=== PATIENT | female | born 1990 | race African-American/Black ===

== ENCOUNTER 2018-06-05 10:02 | Inpatient (IN) | payer OTHER ==
[~2018-06-05 10:02] MED LIST: Bicitra 30 ML UDCUP PO SCH; CEFAZOLIN/Water 2 GM/20 ML SYRINGE SLOW IVP SCH; Ondansetron PF 4 MG/2 ML Vial IVP PRN; Promethazine HCl 25 MG/ML VIAL IM PRN
[2018-06-05] MEDS: Lactated Ringer's 1,000 ML IV SCH ×3 (10:48→21:07)
[2018-06-05 11:01] LABS: Hemoglobin 11.6 g/dL (12.0-16.0); Mean Corpuscular HGB CONC 32.5 g/dL (32.0-36.0); Mean Corpuscular Hemoglobin 29.4 pg (27.0-31.0); Mean Corpuscular Volume 90.6 fL (78.0-98.0); Mean Platelet Volume 8.1 fL (7.4-10.4); Platelet Count 243 thou/uL (130-400); RBC Distribution Width 14.1 % (11.5-14.5); Red Blood Cell (RBC) Count 3.95 mill/uL (4.20-5.40); White Blood Cell (WBC) Count 5.7 thou/uL (4.8-10.8)
[2018-06-05 11:14] VITALS: BMI 28.6
[2018-06-05 11:48] LABS: Hep B Surf Ag Non-Reactive S/CO (NonReactive); Syphilis Antibody Nonreactive (Nonreactive); Syphilis Antibody Index 0.04 S/CO (<1.00 Non-Reactive)
[2018-06-05] MEDS ORDERED: CEFAZOLIN 2 GM/50 ML-DEXTROSE 2 GM in Premix Bag 1 BAG IVPB SCH (12:00)
[2018-06-05] MEDS ORDERED: Morphine PF 1 MG/ML SYR ONE (12:10)
[2018-06-05] MEDS ORDERED: Bupivacaine 0.75% W/DEXTROSE 8.25% 2 ML AMP ONE (12:11)
[2018-06-05] MEDS ORDERED: Ondansetron PF 4 MG/2 ML Vial ONE (12:11)
[2018-06-05] MEDS ORDERED: Oxytocin 10 UNITS/ML VIAL ONE (12:11)
[2018-06-05] MEDS ORDERED: Lidocaine 2% PF Inj 2 ML VIAL ONE (12:12)
[2018-06-05] MEDS ORDERED: ePHEDrine/0.9% NaCl/PF SYRINGE 50 mg/10 ml ONE (12:33)
[2018-06-05] MEDS ORDERED: Ketorolac Tromethamine 30 MG/ML VIAL ONE (12:53)
[2018-06-05] MEDS ORDERED: Fentanyl 100 MCG/2 ML VIAL ONE (12:56)
[2018-06-05] MEDS ORDERED: diphenhydrAMINE 50 MG/ML VIAL IVP PRN (13:16)
[2018-06-05] MEDS ORDERED: Ondansetron PF 4 MG/2 ML Vial IVP PRN (13:16)
[2018-06-05] MEDS ORDERED: Promethazine HCl 25 MG/ML VIAL IM PRN (13:16)
[2018-06-05] MEDS ORDERED: Naloxone HCl 0.4 mg/ml Vial IVP PRN ×2 (13:16)
[2018-06-05] MEDS ORDERED: Eucerin (Mineral Oil/Petrolatum,White) 30 gm Jar TOP PRN (13:16)
[2018-06-05] MEDS ORDERED: Naloxone HCl 0.4 mg/ml Vial IV PRN (13:16)
[2018-06-05] MEDS ORDERED: Promethazine HCl 25 MG SUPP PR PRN (13:16)
[2018-06-05] MEDS ORDERED: diphenhydrAMINE 25 MG CAP PO PRN (13:25)
[2018-06-05] MEDS ORDERED: Bisacodyl 10 MG SUPP PR PRN (13:25)
[2018-06-05] MEDS ORDERED: Adacel (T-DAP) 0.5 ML VIAL IM ONE (13:25)
[2018-06-05] MEDS ORDERED: Zolpidem Tartrate 5 MG TAB PO PRN (13:25)
[2018-06-05] MEDS ORDERED: Simethicone Chewable 80 MG TAB PO PRN (13:25)
[2018-06-05] MEDS ORDERED: Misoprostol 200 MCG TAB PR PRN (13:25)
[2018-06-05] MEDS ORDERED: Lanolin Ointment 7 GM TUBE TOP PRN (13:25)
--- NOTE | 2018-06-05 13:28 | PDOC.OPDEL ---
OB Operative/Delivery Note Delivery Dr/Surgeon: Tony Pre-Delivery Diagnosis: scheduled section Procedure/Post Delivery Dx: repeat low transverse CS Weeks gestation: 39 Anesthesia: spinal - Findings A Sex: male Weight: 7 lb 3 oz - 1 min: 8 - 5 min: 9 - Additional Findings/Plan Placenta delivered: manual removal findings: low transverse hysterotomy without extension (lower uterine segment scarring/omental adhesions. S/p lysis of adhesions.) Post delivery plan: routine recovery
[2018-06-05] MEDS ORDERED: NS / Oxytocin 40 units/1000ml 1,000 ML IV SCH (13:30)
[2018-06-05] MEDS ORDERED: Communication Order-Pharmacy FS SCH (13:30)
[2018-06-05] MEDS ORDERED: HYDROmorphone 2 MG/ML VIAL SLOW IVP PRN (14:57)
[2018-06-05] MEDS ORDERED: Ondansetron HCl/PF 4 MG/2 ML Vial IVP PRN (14:57)
[2018-06-05] MEDS ORDERED: HYDROmorphone 2 MG/ML VIAL SLOW IVP SCH (15:30)
--- NOTE | 2018-06-05 15:30 | OP ---
DATE OF PROCEDURE: 06/05/2018 PREOPERATIVE DIAGNOSES: 1. A 28-year-old -[place] female G2, P1 at 39 weeks gestation, prior section. 2. Desires repeat. POSTOPERATIVE DIAGNOSES: 1. A 28-year-old -[place] female G2, P1 at 39 weeks gestation, prior section. 2. Desires repeat. PROCEDURE PERFORMED: 1. Repeat low transverse section without extension. 2. Lysis of adhesions. SURGEON: Kelly Jimenez M.D. UTILITY WORKER PRODUCTION: Anna Erickson D.O. ANESTHESIA: Spinal block. FINDINGS: 1. Vigorous male infant, Apgars 8 and 9, weight 7 pounds 3 ounces. Vertex presentation. 2. Clear amniotic fluid noted. 3. Patient with significant lower uterine segment adhesions noted on entry in the abdomen, status po st adhesiolysis. 4. Clear urine present in Flores catheter post procedure. DISPOSITION: To recovery room, stable. DESCRIPTION OF OPERATIVE PROCEDURE: The patient previously received informed consent in regard to deng rgbanner. She is taken back to the operating room where she received a spinal block without complicatio ns. She was then placed in the supine position, prepped and draped in usual sterile fashion. The Fo eunice catheter and SCDs had been placed during the prep process. At this time, a Pfannenstiel incision was made through the previous scar site. This was carried down the fascia. Fascia was nicked in th e midline. Fascial incision was extended bilaterally using curved Dowling scissors. The rectus fascia was then dissected superiorly and inferiorly off the rectus muscle bellies. The rectus muscle bellie s were divided in the midline and a window in the peritoneum was identified and this was incised with Metzenbaum scissors. This was extended sharply. Then layering technique, adhesions were taken down off the lower uterine segment both peritoneal and omental. Once this had been cleared and mobilizat ion of the uterus was possible, an Jarad O retractor was then placed. A 2 cm hysterotomy incision w as then made in the lower uterine segment. This was extended via finger fractionation. The amniotic bag was ruptured and the baby was delivered in the vertex presentation. The mouth and nares of the infant were bulb suctioned on the abdomen. The cord was doubly clamped and cut and the baby was hand ed to pediatric team in attendance. The usual cord blood was obtained and placenta was manually extr acted. The uterus was externalized and the uterus was curetted of any remaining placental fragments with a dry laparotomy sponge. Hysterotomy incision was then closed in two layer closure with #1 [place] cryl in running locking fashion. There continued to be some bleeding in the middle portion of hyste rotomy to site and additional 0-chromic sutures were placed in many locking and in [id number] st itch fashion until adequate hemostasis was assured. The uterus was returned back in the abdomen and the area again was inspected and hemostasis was noted with some continued moderate amount of oozing a nd therefore, FloSeal was placed in the secured hemostasis. Once it had been in place, hemostasis al rossy the hysterotomy incision again was confirmed. The Jarad O retractor was removed. The rectus mu scle bellies were inspected and noted to be hemostatic. The fascia was then closed in running contin uous fashion with 0 PDS suture x2. Subcutaneous tissue was noted to be hemostatic prior to skin appr oximation with arthur. Surgery was terminated and no anesthetic or surgical complications.
[2018-06-05] MEDS: Ferrous Sulfate 325 MG TAB PO SCH (17:36)
[2018-06-05] MEDS: Docusate Calcium (SURFAK) 240 MG CAP PO SCH (21:02)
[2018-06-06] MEDS: Ketorolac Tromethamine 30 MG/ML VIAL IVP PRN ×2 (00:16→07:57)
[2018-06-06] MEDS ORDERED: Meperidine HCl/PF 25 MG/ML VIAL IM PRN (01:30)
[2018-06-06 05:39] LABS: Hemoglobin 7.1 g/dL (12.0-16.0); Mean Corpuscular HGB CONC 32.2 g/dL (32.0-36.0); Mean Corpuscular Hemoglobin 29.7 pg (27.0-31.0); Mean Corpuscular Volume 92.2 fL (78.0-98.0); Platelet Count 178 thou/uL (130-400); RBC Distribution Width 13.9 % (11.5-14.5); Red Blood Cell (RBC) Count 2.39 mill/uL (4.20-5.40); White Blood Cell (WBC) Count 8.3 thou/uL (4.8-10.8)
[2018-06-06] MEDS ORDERED: Sodium Chloride 0.9% 10 ML ONE (07:53)
[2018-06-06] MEDS: Prenatal Vitamin 1 TAB PO SCH (07:59)
[2018-06-06] MEDS: Ferrous Sulfate 325 MG TAB PO SCH ×2 (07:59→17:47)
[2018-06-06] MEDS: Docusate Calcium (SURFAK) 240 MG CAP PO SCH ×2 (07:59→21:26)
--- NOTE | 2018-06-06 08:47 | PDOC.PP ---
Post Progress Note Post Day #: 1 PO intake tolerated: yes Flatus: yes Ambulation: yes Vital Signs (12 hours) Temp Pulse Resp BP 06/06/18 06:28 18 06/06/18 04:00 98.5 F 94 18 94/53 L 06/06/18 00:00 98.7 F 114 H 20 114/59 L 06/05/18 22:00 18 Weight Weight 183 lb - Physical Examination Respiratory: clear to auscultation bilaterally, non-labored breathing Abdominal: + bowel sounds, lochia, no distention, appropriately TTP Extremities: negative homans (B) Result Diagrams: 06/06/18 05:04 Additional Labs: Post Labs Blood Type O POSITIVE 06/05/18 10:48 Hep Bs Antigen Non-Reactive S/CO (NonReactive) 06/05/18 10:48 - Assessment/Plan Post op day 1. Asymptomatic blood loss anemia. No tachycardia. Excellent urine output. advance diet. Iron. Routine care.
[2018-06-06] MEDS: HYDROcodone/Acetaminophen 5/325 mg Tablet PO PRN ×4 (09:25→21:54)
[2018-06-06] MEDS: Lactated Ringer's 1,000 ML IV SCH ×2 (09:28→16:50)
[2018-06-06] MEDS: Ibuprofen 800 MG TAB PO SCH ×2 (13:32→21:26)
--- NOTE | 2018-06-07 00:27 | PDOC.PP ---
Post Progress Note Post Day #: 2 Subjective: Doing well, ambulating well PO intake tolerated: yes Flatus: yes Ambulation: yes Vital Signs (12 hours) Temp Pulse Resp BP Pulse Ox 06/06/18 20:00 97.7 F 97 18 104/54 L 100 06/06/18 17:30 98.5 F 102 H 20 112/63 06/06/18 12:46 98.2 F 102 H 20 107/57 L Weight Weight 183 lb - Physical Examination General: NAD Cardiovascular: no m/r/g Respiratory: clear to auscultation bilaterally Abdominal: + bowel sounds, lochia, no distention, appropriately TTP Extremities: negative homans (B) Skin: CS incision dry & intact ([place] in place (3 steri strips on the incision on maternal right side)) Neurological: no gross focal deficits Psychiatric: A&Ox3, normal affect Result Diagrams: 06/06/18 05:04 Additional Labs: Post Labs Blood Type O POSITIVE 06/05/18 10:48 Hep Bs Antigen Non-Reactive S/CO (NonReactive) 06/05/18 10:48 (1) delivery delivered Code(s): O82 - ENCOUNTER FOR DELIVERY WITHOUT INDICATION Status: Acute - Assessment/Plan POD 2 from scheduled repeat CS. Doing well. Hct was 22 from 35. Would like to be discharged home today if baby able. Plan: 1. We will plan for noon dsch if baby ok for release 2. has staple appointment saturday 3. Asx anemia- Fe supplements given 4. BPs ok, no evidence of ileus
--- NOTE | 2018-06-07 00:30 | PDOC.EVN ---
Event Note - Event Note Event Note: DISCHARGE NOTE: Discharge sheet completed in paper chart: S/P elective repeat CS Routine postop care [place] in place
[2018-06-07] MEDS: Lactated Ringer's 1,000 ML IV SCH ×2 (01:49→09:48)
[2018-06-07] MEDS: Ibuprofen 800 MG TAB PO SCH (05:50)
[2018-06-07] MEDS: HYDROcodone/Acetaminophen 5/325 mg Tablet PO PRN ×2 (05:51→10:35)
[2018-06-07] MEDS: Docusate Calcium (SURFAK) 240 MG CAP PO SCH (10:34)
[2018-06-07] MEDS: Ferrous Sulfate 325 MG TAB PO SCH (10:34)
[2018-06-07] MEDS: Prenatal Vitamin 1 TAB PO SCH (10:34)
[2018-06-07 12:09] VITALS: BP 111/60; TEMP 98.3
== END 2018-06-07 13:45 | disposition home or self-care (01) | DRG 788 ==
LOC: L&D 10:02 → 3SW 16:19
PROVIDERS: ADMIT Obstetrics & Gynecology; ATTEND Obstetrics & Gynecology
PROC: 10D00Z1 Extraction of Products of Conception, Low, Open Approach (ICD-10-PCS; principal; 2018-06-05)
DX: O34.211 Maternal care for low transverse scar from previous cesarean delivery (principal); Z3A.39 39 weeks gestation of pregnancy; Z37.0 Single live birth
CPT/HCPCS: 36415; 51702; 85027; 86780; 86850; 86900; 86901; 87340; J1170; J1885; J2274; J2405; J2590; J3010; J3490

== ENCOUNTER 2020-06-21 12:26 | Day surgery (SDC) | payer OTHER ==
[2020-06-21] MEDS ORDERED: hydrALAZINE 20 MG/ML VIAL SLOW IVP PRN (12:36)
--- NOTE | 2020-06-21 13:21 | PDOC.LDHP ---
Labor and Delivery H&P Chief complaint: other (spotting) HPI: 30 y/o at 31w3d, patient of Dr. Fernandez, presents with spotting today. She reports having a low lying placenta and wanted to make sure everything was ok. Last intercourse 2 days ago. Denies heavy VB, LOF, ctx, or other concerns. +FM ROS neg for HEENT, cv, pulm, gi, gu, neuro, psych, skin, musculoskeletal or constitutional symptoms other than mentioned above. OB History Details: 2 prior term LTCS. First for distress, second elective repeat. Current complications: other (low lying palcenta) Past Medical History: None Current medications: pre- vitamins Previous surgical history: low tranverse CS (x2) Allergies/Adverse Reactions: Allergies Allergy/AdvReac Type Severity Reaction Status Date / Time No Known Allergies Allergy Verified 06/21/20 13:01 Social history: none - Physical Exam Vital signs reviewed and normal: yes General: NAD, resting Lungs: nonlabored breathing Abdomen: gravid Extremeties: no edema FHT: category 1 (135, mod variability, + accels, no decels) Belva contractions every: None - Vaginal Exam cm dilated: 0 (no blood on spec exam) - OB Labs Blood type: O RH: positive - Assessment 30 y/o at 31w3d with no e/o active bleeding. status reassuring with AGA reactive NST. - Plan -: D/c home with precautions. Advised to keep all appointments.
[2020-06-22] MEDS ORDERED: FLU VACC QS2020-21(6MOS UP)/PF 60 MCG/0.5 ML SYRINGE IM ONE (09:00)
== END 2020-06-21 13:50 | disposition home or self-care (01) ==
LOC: L&D/OP 12:26
PROVIDERS: ATTEND Family Medicine
DX: O26.853 Spotting complicating pregnancy, third trimester (principal); O44.43 Low lying placenta NOS or without hemorrhage, third trimester; O34.211 Maternal care for low transverse scar from previous cesarean delivery; Z3A.31 31 weeks gestation of pregnancy
CPT/HCPCS: 99282

== ENCOUNTER 2020-07-12 08:00 | Outpatient (CLI) | payer OTHER ==
--- NOTE | 2020-07-12 10:25 | ULT ---
Limited Obstetrical ultrasound: 07/12/2020 COMPARISON: None HISTORY: Evaluate location of placenta TECHNIQUE: Multiplanar grayscale sonographic imaging of the gravid uterus obtained. FINDINGS: The uterus contains a single intrauterine gestation demonstrating a heart rate of 143 bpm. The cervical length is estimated at 3.3 cm. The placenta is located anteriorly and demonstrates no evidence for placental previa or placental abruption. The placental tip appears to be 4.8 cm from the internal os. The plywood layup line core layer reports a breech presentation. anatomy and biometry was not assessed on this exam. IMPRESSION: No evidence for placental previa.
== END 2020-07-12 08:01 | disposition home or self-care (01) ==
LOC: BICULT 08:00
PROVIDERS: ATTEND Family Medicine
DX: O09.893 Supervision of other high risk pregnancies, third trimester (principal)
CPT/HCPCS: 76815

== ENCOUNTER 2020-08-12 08:06 | Outpatient (CLI) | payer OTHER ==
[2020-08-12 21:23] LABS: SARS-CoV-2 MS2 Positive; SARS-CoV-2 N Gene Negative; SARS-CoV-2 S Gene Negative; SARS-CoV-2 by NAA Not Detected (NotDetected); SARS-CoV-2 orf1ab Negative
== END 2020-08-12 08:07 | disposition home or self-care (01) ==
LOC: LABBT 08:06
PROVIDERS: ATTEND Family Medicine
DX: Z01.812 Encounter for preprocedural laboratory examination (principal); Z20.822 Contact with and (suspected) exposure to COVID-19
CPT/HCPCS: 87635; U0003

== ENCOUNTER 2020-08-16 14:03 | Inpatient (IN) | payer OTHER ==
[2020-08-16] MEDS ORDERED: Famotidine/PF 20 mg/2ml Vial SLOW IVP PRN (14:37)
[2020-08-16] MEDS ORDERED: Bicitra 30 ML UDCUP PO PRN (14:37)
[2020-08-16] MEDS ORDERED: Promethazine HCl 25 MG/ML VIAL IM PRN ×3 (14:37→23:19)
[2020-08-16] MEDS ORDERED: Ondansetron PF 4 MG/2 ML Vial IVP PRN ×3 (14:37→23:19)
[2020-08-16] MEDS ORDERED: hydrALAZINE 20 MG/ML VIAL SLOW IVP PRN ×2 (14:37→23:19)
[2020-08-16 14:45] VITALS: BMI 35.0
[2020-08-16] MEDS ORDERED: CEFAZOLIN 2 GM in Premix Bag 1 BAG IVPB SCH (14:45)
[2020-08-16] MEDS: Lactated Ringer's 1,000 ML IV SCH (14:54)
[2020-08-16 14:59] LABS: Hemoglobin 9.8 g/dL (12.0-16.0); Mean Corpuscular HGB CONC 32.5 g/dL (32.0-36.0); Mean Corpuscular Hemoglobin 28.2 pg (27.0-31.0); Mean Corpuscular Volume 86.6 fL (78.0-98.0); Mean Platelet Volume 8.3 fL (7.4-10.4); Platelet Count 304 thou/uL (130-400); RBC Distribution Width 15.9 % (11.5-14.5); Red Blood Cell (RBC) Count 3.49 mill/uL (4.20-5.40); White Blood Cell (WBC) Count 6.8 thou/uL (4.8-10.8)
[2020-08-16 15:46] LABS: HBSAg Index 0.25 S/CO (0-0.99); Hep B Surf Ag Non-Reactive S/CO (NonReactive); Syphilis Antibody Nonreactive (Nonreactive); Syphilis Antibody Index 0.05 S/CO (<1.00 Non-Reactive)
[2020-08-16] MEDS ORDERED: Ondansetron PF 4 MG/2 ML Vial ONE (16:06)
[2020-08-16] MEDS ORDERED: Oxytocin 10 UNITS/ML VIAL ONE (16:06)
[2020-08-16] MEDS ORDERED: Morphine PF 10 MG/10 ML VIAL ONE (16:06)
[2020-08-16] MEDS ORDERED: ePHEDrine 50 MG/ML VIAL ONE (16:06)
[2020-08-16 16:35] LABS: Amphetamine Not Detected (NotDetected); Barbiturates Screen Not Detected (NotDetected); Benzodiazepine Screen Not Detected (NotDetected); Cocaine Metabolite Screen Not Detected (NotDetected); Medtox Control Line Valid? VALID (VALID); Medtox Reader # READER 1; Methadone Not Detected (NotDetected); Methamphetamine Not Detected (NotDetected); Opiate Screen Not Detected (NotDetected); Oxycodone Screen Not Detected (NotDetected); Phencyclidine (PCP) Not Detected (NotDetected); THC/Cannabinoid Screen Not Detected (NotDetected); Tricyclic Screen Not Detected (NotDetected)
[2020-08-16] MEDS ORDERED: Dexamethasone 4 mg/ml Vial ONE (16:51)
[2020-08-16] MEDS ORDERED: Ketorolac Tromethamine 30 MG/ML VIAL ONE (16:51)
[2020-08-16] MEDS ORDERED: Promethazine HCl 25 MG/ML VIAL ONE (16:54)
[2020-08-16] MEDS ORDERED: PHENYLEPHRINE-NS 100 MCG/ML 10 ML SYRINGE ONE (16:55)
[2020-08-16] MEDS ORDERED: Ketamine 50 MG/ML (10ML VIAL) ONE (17:09)
[2020-08-16] MEDS ORDERED: Midazolam HCl 2 mg/2 ml Vial ONE (17:09)
[2020-08-16] MEDS ORDERED: Promethazine HCl 25 MG SUPP PR PRN (17:35)
[2020-08-16] MEDS ORDERED: Meperidine HCl/PF 25 MG/ML VIAL SLOW IVP PRN (17:35)
[2020-08-16] MEDS ORDERED: Naloxone HCl 0.4 mg/ml Vial IV PRN (17:35)
[2020-08-16] MEDS ORDERED: diphenhydrAMINE 50 MG/ML VIAL IVP PRN (17:35)
[2020-08-16] MEDS ORDERED: Naloxone HCl 0.4 mg/ml Vial IVP PRN ×2 (17:35)
[2020-08-16] MEDS ORDERED: Ondansetron HCl/PF 4 MG/2 ML Vial IVP PRN (17:35)
[2020-08-16] MEDS ORDERED: L&D-Morphine 4 MG/ML VIAL SLOW IVP PRN (17:35)
[2020-08-16] MEDS ORDERED: HYDROmorphone 2 MG/ML VIAL SLOW IVP PRN (17:35)
[2020-08-16] MEDS ORDERED: Communication Order-Pharmacy FS SCH (17:45)
[2020-08-16] MEDS: metroNIDAZOLE 500 MG in Premix Bag 1 BAG IVPB SCH (19:39)
[2020-08-16] MEDS: CEFAZOLIN 2 GM in Premix Bag 1 BAG IVPB SCH (22:12)
[2020-08-16] MEDS ORDERED: NS / Oxytocin 40 units/1000ml 1,000 ML IV SCH (23:19)
[2020-08-16] MEDS ORDERED: Meperidine HCl/PF 25 MG/ML VIAL IM PRN (23:19)
[2020-08-16] MEDS ORDERED: Simethicone Chewable 80 MG TAB PO PRN (23:19)
[2020-08-16] MEDS ORDERED: HYDROcodone/Acetaminophen 5/325 mg Tablet PO PRN (23:19)
[2020-08-16] MEDS ORDERED: diphenhydrAMINE 25 MG CAP PO PRN (23:19)
[2020-08-16] MEDS ORDERED: Bisacodyl 10 MG SUPP PR PRN (23:19)
[2020-08-16] MEDS ORDERED: Lanolin Ointment 7 GM TUBE TOP PRN (23:19)
[2020-08-16] MEDS ORDERED: Ketorolac Tromethamine 30 MG/ML VIAL IVP SCH (23:59)
[2020-08-17] MEDS: Ketorolac Tromethamine 30 MG/ML VIAL IVP SCH ×4 (00:56→18:02)
[2020-08-17] MEDS: metroNIDAZOLE 500 MG in Premix Bag 1 BAG IVPB SCH ×2 (05:18→15:24)
[2020-08-17] MEDS: CEFAZOLIN 2 GM in Premix Bag 1 BAG IVPB SCH ×3 (05:54→22:20)
[2020-08-17 07:47] LABS: Hemoglobin 8.5 g/dL (12.0-16.0); Mean Corpuscular HGB CONC 32.1 g/dL (32.0-36.0); Mean Corpuscular Hemoglobin 28.3 pg (27.0-31.0); Mean Corpuscular Volume 88.2 fL (78.0-98.0); Mean Platelet Volume 8.4 fL (7.4-10.4); Platelet Count 233 thou/uL (130-400); Red Blood Cell (RBC) Count 2.98 mill/uL (4.20-5.40); White Blood Cell (WBC) Count 17.9 thou/uL (4.8-10.8)
[2020-08-17] MEDS ORDERED: Adacel (T-DAP) 0.5 ML SYRINGE IM ONE (09:00)
[2020-08-17] MEDS: HYDROcodone/Acetaminophen 5/325 mg Tablet PO PRN ×3 (09:02→21:50)
[2020-08-17] MEDS: Ferrous Sulfate 325 MG TAB PO SCH ×2 (09:03→21:50)
[2020-08-17] MEDS: Prenatal Vitamin 1 TAB PO SCH (09:03)
[2020-08-17] MEDS: Docusate Calcium (SURFAK) 240 MG CAP PO SCH ×2 (10:22→21:50)
[2020-08-17] MEDS: Lactated Ringer's 1,000 ML IV SCH (19:47)
[2020-08-17] MEDS ORDERED: Sodium Chloride 0.9% 10 ML ONE (21:40)
[2020-08-17] MEDS: Ibuprofen 800 MG TAB PO SCH (21:50)
[2020-08-18] MEDS: metroNIDAZOLE 500 MG in Premix Bag 1 BAG IVPB SCH ×2 (00:10→09:07)
[2020-08-18] MEDS: HYDROcodone/Acetaminophen 5/325 mg Tablet PO PRN ×2 (01:52→09:14)
[2020-08-18] MEDS: Ibuprofen 800 MG TAB PO SCH (04:58)
[2020-08-18] MEDS: CEFAZOLIN 2 GM in Premix Bag 1 BAG IVPB SCH (04:58)
[2020-08-18 08:21] VITALS: BP 108/58; TEMP 98.5
--- NOTE | 2020-08-18 08:47 | OP ---
DATE OF PROCEDURE: 08/16/2020 PREOPERATIVE DIAGNOSES: 1. A 39-week . 2. Previous x2. POSTOPERATIVE DIAGNOSES: 1. A 39-week . 2. Previous x2. 3. Pelvic adhesive disease. PROCEDURES PERFORMED: 1. Repeat low cervical transverse . 2. Lysis of adhesions. ASSET MANAGEMENT LEAD: Elodia Baltazar MD ANESTHESIA: Spinal. DESCRIPTION OF PROCEDURE: After informed consent was obtained from the patient, she was taken to the OR where spinal anesthesia was administered, Flores and heart tones were performed leftward tilt. She was prepped and draped in the usual sterile fashion. A Pfannenstiel incision was created over her previous incision and carried down to the fascia. The fascia was nicked in the midline and the fascial incision was extended transversely with Dowlign scissors. The superior fascial segment was grasped with Janee's and elevated and the underlying rectus muscles were dissected away with Dowling scissors. This was repeated similarly with the inferior fascial segment. The rectus muscles were divided in the midline sharply. There were significant amount of dense adhesions in the lower uterine segment to the anterior abdominal wall and omental adhesions to the uterine fundus and lateral aspects of the uterus. The omental adhesions were taken down with the Bovie. Hemostasis was ensured with cautery as well. The adhesions between the rectus muscles and the lower uterine segments were taken down carefully with Metzenbaum scissors. These adhesions originated about half of the way up on the uterus and I was able to carefully dissect the adhesions down to about 5 cm from their origination point; however, they became much more dense and adhesed and bleeding from the adhesions became more significant, so decision was made to create a hysterotomy higher in the lower segment than normally. This resulted in encountering the inferior edge of the anterior placenta, which was sharply and bluntly dissected through, the vertex was delivered onto the operative field. The remainder of the delivered atraumatically. The oropharynx and nares were bulb suctioned. The cord was clamped x2 and a vigorous female infant was handed to the staff in attendance. The placenta was manually extracted. Few more adhesions were taken down to mobilize the uterus enough to exteriorize it. The uterus was repaired with a running locking suture of 1 Monocryl in a single full-thickness layer followed by a series of interrupted [id number] sutures along the incision line for hemostasis, which was observed. Bleeding points along the uterus from adhesions were made hemostatic with the Bovie and with interrupted suture ligation. The abdomen was copiously irrigated. At this point in the case, pale yellow urine was noted to be draining into the Flores catheter. The uterus was returned to the abdomen and again inspected for hemostasis, which was observed. Due to blood loss from her pelvic adhesive disease and encountering the placenta and her anemia to start out with, intraoperative transfusion of 2 units of packed red cells was initiated, even though she never became tachycardic or hypotensive. The rectus muscles were inspected and made hemostatic and bleeding points were made hemostatic with the Bovie. The fascia was repaired with a running locking suture of 0 PDS. The skin was reapproximated with arthur. She tolerated the procedure well and suffered no other complications. She was taken to Recovery in stable condition and the infant to Nursery in stable condition. FINDINGS: Viable female infant, Apgars 8 and 9 at one and five minutes respectively. QUANTITATIVE BLOOD LOSS: 1500 secondary to pelvic adhesive disease. COMPLICATIONS: None. Job ID: [id number]
[2020-08-18] MEDS: Ferrous Sulfate 325 MG TAB PO SCH (08:57)
[2020-08-18] MEDS: Docusate Calcium (SURFAK) 240 MG CAP PO SCH (08:57)
[2020-08-18] MEDS: Prenatal Vitamin 1 TAB PO SCH (08:57)
== END 2020-08-18 11:50 | disposition home or self-care (01) | DRG 787 ==
LOC: L&D 14:03 → 3SW 08-17 16:12
PROVIDERS: ADMIT Family Medicine; ATTEND Family Medicine
PROC: 10D00Z1 Extraction of Products of Conception, Low, Open Approach (ICD-10-PCS; principal; 2020-08-16)
PROC: 0DNW0ZZ Release Peritoneum, Open Approach (ICD-10-PCS; 2020-08-16)
PROC: 0W3J0ZZ Control Bleeding in Pelvic Cavity, Open Approach (ICD-10-PCS; 2020-08-16)
PROC: 30233L1 Transfusion of Nonautologous Fresh Plasma into Peripheral Vein, Percutaneous Approach (ICD-10-PCS; 2020-08-16)
PROC: 30233N1 Transfusion of Nonautologous Red Blood Cells into Peripheral Vein, Percutaneous Approach (ICD-10-PCS; 2020-08-16)
PROC: 30233K1 Transfusion of Nonautologous Frozen Plasma into Peripheral Vein, Percutaneous Approach (ICD-10-PCS; 2020-08-16)
DX: O34.211 Maternal care for low transverse scar from previous cesarean delivery (principal); O72.1 Other immediate postpartum hemorrhage; Z3A.39 39 weeks gestation of pregnancy; Z37.0 Single live birth; Z20.822 Contact with and (suspected) exposure to COVID-19; N73.6 Female pelvic peritoneal adhesions (postinfective); O99.892 Other specified diseases and conditions complicating childbirth; O99.02 Anemia complicating childbirth; D50.0 Iron deficiency anemia secondary to blood loss (chronic)
CPT/HCPCS: 36415; 36430; 51702; 80306; 85027; 86780; 86850; 86900; 86901; 87340; J0690; J1100; J1200; J1885; J2250; J2270; J2405; J2550; J3490; P9016; P9059

== ENCOUNTER 2022-07-06 20:03 | Emergency (ER) | payer OTHER ==
[~2022-07-06 20:03] MED LIST changes: -Bicitra 30 ML UDCUP PO SCH; -CEFAZOLIN/Water 2 GM/20 ML SYRINGE SLOW IVP SCH; +Iopamidol-370 76% 500 ML 1 ML ONE; -Ondansetron PF 4 MG/2 ML Vial IVP PRN; -Promethazine HCl 25 MG/ML VIAL IM PRN
[2022-07-06] MEDS ORDERED: Morphine 4 MG/ML VIAL ONE (20:40)
[2022-07-06] MEDS ORDERED: Ketorolac Tromethamine 30 MG/ML VIAL ONE (20:40)
[2022-07-06] MEDS ORDERED: Ondansetron PF 4 MG/2 ML Vial ONE (20:40)
[2022-07-06 20:51] LABS: Bacteria/HPF None Seen HPF (None Seen); Bilirubin Negative (Negative); Blood, Urine Trace (Negative); Clarity Clear (Clear); Glucose, Urine (Dipstick) Normal (Negative); Ketone, Urine 10 mg/dL (Negative); Leukocyte Negative Leu/uL (Negative); Nitrite Negative (Negative); Protein, Urine (Dipstick) Negative (Neg-Trace); RBC/HPF None Seen HPF (0-3); Specific Gravity, Urine 1.002 (1.002-1.036); Squamous Epithelial None Seen HPF (0-3); Urobilinogen Normal mg/dL (Less than 2); WBC/HPF 0-3 HPF (0-3)
[2022-07-06 21:03] LABS: #Lymphocytes 1.3 thou/uL (1.20-3.40); #Monocytes 0.4 thou/uL (0.11-0.59); #Neutrophils 5.7 thou/uL (1.40-6.50); %Basophils 0.3 % (0.0-1.0); %Eosinophils 0.1 % (0.0-10.0); %Lymphocytes 17.5 % (21.0-51.0); %Monocytes 5.1 % (0.0-10.0); %Neutrophils 76.9 % (42.0-75.0); Hemoglobin 10.2 g/dL (12.0-16.0); Mean Corpuscular HGB CONC 32.2 g/dL (32.0-36.0); Mean Corpuscular Hemoglobin 28.6 pg (27.0-31.0); Mean Corpuscular Volume 88.8 fl (78.0-98.0); Mean Platelet Volume 8.3 fL (7.4-10.4); Platelet Count 350 10x3/uL (130-400); RBC Distribution Width 16.2 % (11.5-14.5); Red Blood Cell (RBC) Count 3.57 mill/uL (4.20-5.40); White Blood Cell (WBC) Count 7.4 10x3/uL (4.8-10.8)
[2022-07-06 21:08] LABS: Pregnancy Test - Urine (BHCG) Negative (Negative); Pregu Control Background? CLEAR/WHITE (CLR/WHITE); Pregu Control Bar Appear? YES (CONTROL BAR); Specific Gravity 1.003 (1.002-1.036)
[2022-07-06 21:23] LABS: ALT (SGPT) 8 U/L (8-55); AST (SGOT) 13 U/L (5-34); Albumin 4.3 g/dL (3.5-5.0); Alkaline Phosphatase 48 U/L (40-110); Anion Gap 14 mmol/L (10-20); BUN (Urea Nitrogen) 9 mg/dL (7.0-18.7); Bilirubin, Total 0.4 mg/dL (0.2-1.2); Calc. Creatinine Clearance 0 mL/min (70-130); Calcium 9.5 mg/dL (7.8-10.44); Carbon Dioxide 21 mmol/L (22-29); Chloride 104 mmol/L (98-107); Estimated GFR 63; Globulin 3.1 g/dL (2.4-3.5); Glucose 97 mg/dL (70-105); Lipase 9 U/L (8-78); Potassium 2.9 mmol/L (3.5-5.1); Protein, Total 7.4 g/dL (6.0-8.3); Sodium 136 mmol/L (136-145)
[2022-07-06] MEDS ORDERED: Potassium Chloride 20 MEQ TAB ONE (22:15)
== END 2022-07-06 22:24 | disposition home or self-care (01) ==
LOC: ERS 20:03
DX: N20.1 Calculus of ureter (principal); N20.0 Calculus of kidney; E87.6 Hypokalemia; D64.9 Anemia, unspecified
CPT/HCPCS: 74177; 80053; 81003; 81015; 81025; 83690; 85025; 96374; 96375; J1885; J2270; J2405; Q9967

== ENCOUNTER 2023-02-04 21:36 | Emergency (ER) | payer OTHER ==
[2023-02-05] MEDS ORDERED: Ondansetron PF 4 MG/2 ML Vial ONE (00:46)
[2023-02-05] MEDS ORDERED: Ketorolac Tromethamine 30 MG/ML VIAL ONE (00:46)
[2023-02-05 01:10] LABS: #Monocytes 0.3 thou/uL (0.11-0.59); #Neutrophils 2.4 thou/uL (1.40-6.50); %Basophils 0.6 % (0.0-1.0); %Eosinophils 0.8 % (0.0-10.0); %Lymphocytes 46.4 % (21.0-51.0); %Monocytes 6.3 % (0.0-10.0); %Neutrophils 45.7 % (42.0-75.0); Hemoglobin 11.5 g/dL (12.0-16.0); Mean Corpuscular HGB CONC 31.1 g/dL (32.0-36.0); Mean Corpuscular Hemoglobin 26.5 pg (27.0-31.0); Mean Corpuscular Volume 85.3 fl (78.0-98.0); Mean Platelet Volume 9.4 fL (7.4-10.4); Platelet Count 333 10x3/uL (130-400); RBC Distribution Width 16.3 % (11.5-14.5); Red Blood Cell (RBC) Count 4.34 mill/uL (4.20-5.40); White Blood Cell (WBC) Count 5.3 10x3/uL (4.8-10.8)
[2023-02-05 01:34] LABS: BHCG - Serum Negative (NEGATIVE); Pregs Control Background? CLEAR/WHITE (CLR/WHITE); Pregs Control Bar Appear? YES (CONTROL BAR)
[2023-02-05 01:42] LABS: ALT (SGPT) 11 U/L (8-55); AST (SGOT) 16 U/L (5-34); Albumin 4.8 g/dL (3.5-5.0); Alkaline Phosphatase 50 U/L (40-110); Anion Gap 14 mmol/L (10-20); BUN (Urea Nitrogen) 17 mg/dL (7.0-18.7); Bilirubin, Total 0.6 mg/dL (0.2-1.2); Calc. Creatinine Clearance 0 mL/min (70-130); Calcium 10.9 mg/dL (7.8-10.44); Carbon Dioxide 28 mmol/L (22-29); Chloride 104 mmol/L (98-107); Estimated GFR 61; Globulin 3.4 g/dL (2.4-3.5); Glucose 90 mg/dL (70-105); Potassium 3.7 mmol/L (3.5-5.1); Protein, Total 8.2 g/dL (6.0-8.3); Sodium 142 mmol/L (136-145)
== END 2023-02-05 04:13 | disposition home or self-care (01) ==
LOC: ERS 21:36
DX: N20.0 Calculus of kidney (principal)
CPT/HCPCS: 74176; 80053; 84703; 85025; 96374; 96375; J1885; J2405

== ENCOUNTER 2023-05-05 16:04 | Emergency (ER) | payer OTHER | END 2023-05-05 16:38 | disposition home or self-care (01) | LOC: ERS 16:04 | DX: Z32.01 Encounter for pregnancy test, result positive (principal) | CPT/HCPCS: 99281 ==

== ENCOUNTER 2023-05-24 19:37 | Emergency (ER) | payer BC, OTHER ==
[2023-05-24 21:32] LABS: SARS-CoV-2 NAA Rapid Test Not Detected (NotDetected)
== END 2023-05-24 20:50 | disposition home or self-care (01) ==
LOC: ERS 19:37
DX: J06.9 Acute upper respiratory infection, unspecified (principal); Z20.822 Contact with and (suspected) exposure to COVID-19
CPT/HCPCS: 99283